=== PATIENT | male | born 1970 | race Caucasian/White ===

== ENCOUNTER 2022-07-05 08:20 | Outpatient (CLI) | payer OTHER, SELFPAY ==
[2022-07-05 12:06] LABS: Albumin* 4.6 g/dL (3.3-5.0); Chloride* 102 mmol/L (96-114); Potassium* 4.7 mmol/L (3.6-5.1); Sodium* 140 mmol/L (135-149)
[2022-07-05 12:08] LABS: Cholesterol* 145 mg/dL (90-199); Estimated Glomerular Filt Rate 91 ml/min
[2022-07-05 12:09] LABS: Alanine Aminotransferase* 61 U/L (4-50); Alkaline Phosphatase* 97 U/L (40-150); Aspartate Amino Transferase* 44 U/L (12-35); Bilirubin Total* 0.7 mg/dL (0.1-1.5); Blood Urea Nitrogen* 25 mg/dL (7-30); Calcium* 9.6 mg/dL (8.4-10.6); Carbon Dioxide* 26 mmol/L (20-32); Glucose* 99 mg/dL (60-115); Triglycerides* 361 mg/dL (40-149)
[2022-07-05 12:10] LABS: HDL Cholesterol* 27 mg/dL (>=40); LDL Cholesterol Calculated 46 mg/dL (<100)
[2022-07-05 12:42] LABS: PSA Screen* 0.57 ng/mL (0.10-4.00)
== END 2022-07-05 08:21 | disposition home or self-care (01) ==
PROVIDERS: PCP Family Medicine; Visit Provider Family Medicine
DX: Z00.00 Encounter for general adult medical examination without abnormal findings (principal); E78.5 Hyperlipidemia, unspecified; I10 Essential (primary) hypertension; Z12.5 Encounter for screening for malignant neoplasm of prostate
CPT/HCPCS: 80053; 80061; 84153

== ENCOUNTER 2023-10-02 06:23 | Outpatient (CLI) | payer OTHER, SELFPAY ==
--- NOTE | 2023-10-02 07:57 | W.ANESCHARGE ---
Anesthesia Charges Start Date/Time Anesthesia Start Date: 10/02/23 Anesthesia Start Time: 07:10 Stop Date/Time Anesthesia Stop Date: 10/02/23 Anesthesia Stop Time: 07:53
== END 2023-10-02 06:24 | disposition home or self-care (01) ==
LOC: OP CLINIC 06:23
PROVIDERS: PCP Family Medicine; Visit Provider Surgery
DX: Z12.11 Encounter for screening for malignant neoplasm of colon (principal); K63.5 Polyp of colon; K57.30 Diverticulosis of large intestine without perforation or abscess without bleeding
CPT/HCPCS: 45385; 811; 88305; J2405; J2704; J3490

== ENCOUNTER 2024-09-25 07:28 | Outpatient (CLI) | payer OTHER, SELFPAY | END 2024-09-25 07:29 | disposition home or self-care (01) | LOC: NFLDREF 09-26 05:56 | PROVIDERS: PCP Family Medicine; Referring Provider Family Medicine; Visit Provider Family Medicine | DX: E78.5 Hyperlipidemia, unspecified (principal); I10 Essential (primary) hypertension | CPT/HCPCS: 80053; 80061 ==

== ENCOUNTER 2025-11-05 14:10 | Outpatient (CLI) | payer OTHER, SELFPAY | END 2025-11-05 14:11 | disposition home or self-care (01) | LOC: NFLDREF 11-11 08:56 | PROVIDERS: PCP Family Medicine; Referring Provider Family Medicine; Visit Provider Family Medicine | DX: I25.10 Atherosclerotic heart disease of native coronary artery without angina pectoris (principal); Z12.5 Encounter for screening for malignant neoplasm of prostate | CPT/HCPCS: 80053; 80061; G0103 ==